=== PATIENT | female | born 1990 | race Caucasian/White ===

== ENCOUNTER 2024-12-08 09:16 | Outpatient (CLI) | payer OTHER, SELFPAY ==
--- NOTE | 2024-12-08 09:15 | CRLHL7_ITS ---
For Patients: As a result of the Century Cures Act, medical imaging exams and procedure reports are released immediately into your electronic medical record. You may view this report before your referring provider. If you have questions, please contact your health care provider. OB ULTRASOUND LESS THAN 14 WEEKS, 12/08/2024 CLINICAL HISTORY: Dating and viability. LMP: 10/13/2024. KEITH by LMP: 07/21/2025. GA: 8 weeks 0 days. TECHNIQUE: Real time jacobs scale imaging of the fetus was performed. Transvaginal. COMPARISON: None. FINDINGS: CRL: 1.7 cm, 8 weeks 0 days. KEITH 07/20/2025. FHR: 178 bpm. Gest Sac: 3.9 cm, appears within normal limits. Yolk Sac: 3.3 mm, appears within normal limits. Right ovary: Within normal limits, 3.4 x 1.3 x 1.7 cm. Left ovary: Within normal limits, 5.2 x 2.1 x 2.4 cm. IMPRESSION: Single living intrauterine with sonographic gestational age 8 weeks 0 days and sonographic due date 07/20/2025. Darrel Mace M.D. Diagnostic Radiologist [email or web address] Transcribed: 11:54 AM DW/Dictated by: Darrel Mace MD @ 12/08/2024 11:19:00 AM (Electronically Signed)
== END 2024-12-08 09:17 | disposition home or self-care (01) ==
LOC: US 09:17
PROVIDERS: Visit Provider Physician Assistant
DX: Z34.91 Encounter for supervision of normal pregnancy, unspecified, first trimester (principal); Z3A.08 8 weeks gestation of pregnancy
CPT/HCPCS: 76817; 83021; 86592; 86703; 86704; 86706; 86762; 86787; 86803; 86850; 86900; 86901; 87086; 87340; 87491; 87591